=== PATIENT | female | born 1960 | race Caucasian/White ===

== ENCOUNTER → 2016-12-01 | Outpatient (CLI) | payer BC ==
[~2016-12-01] MED LIST: BIAXIN PO; KEPPRA500 M2 PO; NORCO 10-325 TA1 TAB PO; OMEPRAZOLE40 M1 PO; PHENERGAN W/CO120 ML PO; ZOFRAN PO
[2016-12-06 15:35] LABS: GLIADIN IGA AB 7 Units (<20); GLIADIN IGG AB 4 Units (<20); RETICULIN IGA SCREEN W/REFLEX Negative (Negative); TISSUE TRANSGLUTAMINASE IGA AB 1 U/mL (<4)
== END | disposition home or self-care (01) ==
LOC: SLABONLY 09:08
PROVIDERS: Internal Medicine Gastroenterology
DX: R74.8 Abnormal levels of other serum enzymes (principal); R71.8 Other abnormality of red blood cells; K31.9 Disease of stomach and duodenum, unspecified
CPT/HCPCS: 83516; 86255